=== PATIENT | female | born 1970 | race Caucasian/White ===

== ENCOUNTER → 2016-11-25 | Outpatient (CLI) | payer OTHER ==
[~2016-11-25] MED LIST: CELEXA40 MG PO; DEPAKOTE500 MG PO; DESYREL100 MG PO; MIRALAX255 GM; MORPHINE SULFA100 MG PO; NAPRELAN500 M1 PO; NASONEX17 GM; OXYCODONE HCL20 M1 PO; PRILOSEC40 MG PO; REQUIP3 MG PO; STOOL SOFTENER50 MG; SYNTHROID300 MCG PO; WELLBUTRIN 100100 M1 NG; ZOFRAN4 MG
== END ==
LOC: CAT 12:12
DX: S42.202K Unspecified fracture of upper end of left humerus, subsequent encounter for fracture with nonunion (principal); X58.XXXD Exposure to other specified factors, subsequent encounter

== ENCOUNTER 2016-12-11 05:19 | Inpatient (IN) | payer OTHER ==
[2016-12-11] VITALS (8 sets, daily range): BP systolic 85–118; BP diastolic 41–68
[~2016-12-11] VITALS: Ht 167.6 cm; Wt 70.3 kg
--- NOTE | ~2016-12-11 | O ---
[address] [address] OPERATIVE REPORT Name: MIR FERNANDES Room #: 411-P ADM IN M.R.#: [id number] Admission: 12/11/16 Attend Phys: Hernandez Godinez Discharge: Date of : 70 Report #: [id number] THIS REPORT FOR: //name// CC: Hernandez Gavin DATE OF SERVICE: 12/11/2016 PREOPERATIVE DIAGNOSIS: Left proximal humeral fracture nonunion. POSTOPERATIVE DIAGNOSIS: Left proximal humeral fracture nonunion. PROCEDURE PERFORMED: Left open reduction internal fixation of proximal humerus fracture with allograft bone grafting and biceps tenodesis. SURGEON: Hernandez Johnson M.D. OYSTER GROWER: Mary Fischer PA-C. ANESTHESIA: General with preoperative interscalene block. FLUIDS: 1000 mL. ESTIMATED BLOOD LOSS: Approximately 200 mL. IMPLANTS UTILIZED: Synthes standard proximal humeral locking plate and RTI biologics 30 mL cancellous bone graft cubes. DESCRIPTION OF PROCEDURE: After proper identification of the patient and operative site in preoperative holding area, the operative site was signed by myself. Prophylactic antibiotics given. The patient elected to proceed with an ultrasound guided interscalene block after reviewing the risks, benefits, alternatives and potential complications with anesthesia. After satisfactory block, the patient was brought back to the operative suite. After induction of satisfactory general endotracheal anesthesia, the patient was carefully positioned in the beach chair position with head of bed elevated approximately 40 degrees. Anterior deltopectoral approach was planned. Left shoulder was sterilely prepped and draped in usual manner. Final skin draping was with Ioban isolation drape. A [email or web address] limb positioning system was utilized throughout the entire procedure to aid in the patient limb positioning. Qualified phlebotomy lab assistant was utilized throughout the entire procedure to aid in patient limb positioning, visualization and retraction of the soft tissues, instrument passage closure and sling application. Anterior deltopectoral approach was planned. Skin was incised sharply. Full thickness skin flaps were developed. Cephalic vein was identified and retracted [address] [address] OPERATIVE REPORT Name: MIR FERNANDES Room #: 411-P ADM IN M.R.#: [id number] Admission: 12/11/16 Attend Phys: Hernandez Godinez Discharge: Date of : 70 Report #: [id number] laterally. Subdeltoid adhesions were carefully elevated. Fracture site was exposed. Long head of biceps tendon was interposed within the fracture site and this was tenodesed to the undersurface of pectoralis major tendon. A portion of the interposed soft tissue at the fracture site was carefully removed under direct visualization and a brown retractor was used to retract the deltoid in a blunt Hohmann. A portion of the hypertrophic nonunion was removed more laterally than medially. The intramedullary canal of the humeral shaft was recreated with a drill bit and care was taken to ensure this was going down the center of the humeral shaft. The proximal humerus had a bone cyst full of fibrous soft tissue that was carefully removed. This was curetted out. Bleeding cancellous bone surface was noted and this was packed with allograft bone graft. The fracture site edges were carefully trimmed and the fracture appeared to reduce nicely. On the radiographs, there was some irregularity along the most medial aspect of the fracture due to the retained hypertrophic nonunion portion, but the overall proximal humeral aspect and head relative to the shaft nicely reduced. Two #2 FiberWires were placed, 1 in the greater tuberosity more infraspinatus supraspinatus junction and 1 in the lesser tuberosity subscapularis junction. A plate was provisionally secured with K-wires. Images were taken and fracture and hardware deemed to be in satisfactory position. Next, the shaft portion was temporarily reduced with cortical screw and then, a total of 5 locking screws were placed into the proximal humerus. These had good purchase. Care was taken to ensure they did not penetrate the articular surface. The #2 FiberWires were then tied through the drill holes in the plate. An additional 3 locking screws were placed in the more distal portion of the shaft and plate creating a cortices of fixation. The construct moved without any gross motion, was nicely reduced. Multiple implant images were taken in the AP oblique and lateral planes and it was deemed to be in satisfactory position. The wound was thoroughly irrigated with normal saline. One gram of vancomycin powder was utilized, half of this in the deep tissues, half in the more subcutaneous tissues. #1 Vicryl, 2-0 Vicryl and a running 3-0 Monocryl were utilized for closure. This was sealed with the Dermabond. Sterile dressing was applied. She was then placed in a sling and abduction pillow. At time of dictation, she was still in the operative suite with anticipated discharge to recovery room in stable condition. <ELECTRONICALLY SIGNED> By: Hernandez Johnson MD 12/11/16 1608 [id number] 1314 Hernandez Johnson MD /nt
[~2016-12-11 05:19] MED LIST changes: +AMITIZA 24 MCG24 MC1 PO; +CALCIUM 500 +1 EAC5 PO; +CENTRUM SILVER1 EAC4 PO; +LIORESAL 10 MG10 MG PO; +MIDODRINE HCL10 MG PO; +MS CONTIN 30 MG30 M1 PO; +MS CONTIN15 MG PO; +OMEPRAZOLE40 MG PO; +STOOL SOFTENER100 M1 PO; +TRAZODONE HCL100 MG PO; +VALIUM5 MG PO; +VITAMIN B-1000 MCG/2 IM; +VITAMIN D-32000 UNIT PO; -ZOFRAN4 MG; +ZOFRAN4 MG PO; +ZOLPIDEM TARTRA10 MG PO; +[UNRECOGNIZED DRUG - REMARK] PO
[2016-12-12 03:08] VITALS: BP 97/56
[2016-12-12 06:30] LABS: HEMATOCRIT 29.5 % (37.0-47.0); HEMOGLOBIN 10.1 gm/dL (12.0-15.0)
[2016-12-12 06:56] LABS: POTASSIUM 4.7 mmol/L (3.5-5.1)
[2016-12-12 08:44] VITALS: BP 85/45
[2016-12-12 08:49] VITALS: BP 116/42
[2016-12-12 16:00] VITALS: BP 98/53
[2016-12-12 20:20] VITALS: BP 122/30
[2016-12-13] VITALS (7 sets, daily range): BP systolic 72–129; BP diastolic 38–57
[2016-12-13 04:51] LABS: HEMATOCRIT 22.1 % (37.0-47.0); MCH 32.8 pg (26.0-34.0); MCHC 34.2 g/dL (28.0-37.0); MCV 95.9 fL (80.0-100.0); PLATELET COUNT 75 thou/uL (150-400); RDW 12.9 % (10.5-14.5); WBC 5.8 thou/uL (4.0-11.0)
[2016-12-13 04:55] LABS: HEMOGLOBIN 7.6 gm/dL (12.0-15.0)
[2016-12-13 04:57] LABS: MANUAL DIFF YES
[2016-12-13 05:25] LABS: CREATININE 0.5 mg/dL (0.6-1.0); MAGNESIUM 1.6 mg/dL (1.8-2.4); POTASSIUM 3.8 mmol/L (3.5-5.1)
[2016-12-13 05:33] LABS: ABSOLUTE NEUTROPHILS 3.5 thou/uL (1.4-8.2); MYELOCYTES 1 %; PLATELET ESTIMATE DECREASED; TOTAL CELL COUNT 100
[2016-12-14 00:16] VITALS: BP 96/44
[2016-12-14 04:01] LABS: CALCIUM 8.5 mg/dL (8.5-10.1); CREATININE 0.6 mg/dL (0.6-1.0); POTASSIUM 3.5 mmol/L (3.5-5.1)
[2016-12-14 04:27] VITALS: BP 139/63
[2016-12-14 04:31] LABS: HEMATOCRIT 29.1 % (37.0-47.0); MCHC 33.7 g/dL (28.0-37.0); RBC 3.07 mil/uL (4.20-5.00); RDW 14.4 % (10.5-14.5); WBC 7.1 thou/uL (4.0-11.0)
[2016-12-14 04:39] LABS: HEMOGLOBIN 9.8 gm/dL (12.0-15.0)
[2016-12-14 08:06] VITALS: BP 131/62
[2016-12-14 12:01] VITALS: BP 131/62
[2016-12-14 13:06] VITALS: BP 131/62
[2016-12-14 14:21] VITALS: BP 131/62
== END 2016-12-14 14:30 | disposition home or self-care (01) | DRG 493 ==
LOC: OR 05:19 → TBA 05:19 → OR 12:37 → 4N 14:39
PROVIDERS: Family Medicine; Nurse Practitioner; Physician Assistant Surgical
PROC: 0PSG04Z Reposition Left Humeral Shaft with Internal Fixation Device, Open Approach (ICD-10-PCS; principal; 2016-12-11)
PROC: 0PU Upper Bones, Supplement (ICD-10-PCS; principal; 2016-12-11)
PROC: 0LS40ZZ Reposition Left Upper Arm Tendon, Open Approach (ICD-10-PCS; principal; 2016-12-11)
PROC: 30233N1 Transfusion of Nonautologous Red Blood Cells into Peripheral Vein, Percutaneous Approach (ICD-10-PCS; 2016-12-13)
DX: S42.202A Unspecified fracture of upper end of left humerus, initial encounter for closed fracture (principal); D62 Acute posthemorrhagic anemia; G89.4 Chronic pain syndrome; F32.9 Major depressive disorder, single episode, unspecified; I95.9 Hypotension, unspecified; F41.9 Anxiety disorder, unspecified; E03.9 Hypothyroidism, unspecified; M79.7 Fibromyalgia; G47.30 Sleep apnea, unspecified; M54.9 Dorsalgia, unspecified; K21.9 Gastro-esophageal reflux disease without esophagitis; M54.2 Cervicalgia; M85.622 Other cyst of bone, left upper arm; Z86.718 Personal history of other venous thrombosis and embolism; Z86.711 Personal history of pulmonary embolism; Z90.49 Acquired absence of other specified parts of digestive tract; Z90.710 Acquired absence of both cervix and uterus; Z98.84 Bariatric surgery status; Z88.0 Allergy status to penicillin; W18.39XA Other fall on same level, initial encounter; Y93.89 Activity, other specified; Y92.89 Other specified places as the place of occurrence of the external cause; Y99.8 Other external cause status
CPT/HCPCS: 10790; 50010; 50101; 50172; 50341; 50386; 50417; 50568; 50697; 50733; 50935; 51439; 54118; 56525; 56530; 56667; 62110; 62900; 65060; 70005

== ENCOUNTER 2018-02-04 05:22 | Inpatient (IN) | payer OTHER ==
[2018-01-26 12:39] LABS: HEMATOCRIT 36.6 % (37.0-47.0); HEMOGLOBIN 12.3 gm/dL (12.0-15.0); MCH 29.6 pg (26.0-34.0); MCHC 33.4 g/dL (28.0-37.0); MCV 88.4 fL (80.0-100.0); RBC 4.14 mil/uL (4.20-5.00); RDW 13.6 % (10.5-14.5); WBC 7.5 thou/uL (4.0-11.0)
[2018-01-26 12:42] LABS: URINE BILIRUBIN NEGATIVE (Negative); URINE BLOOD NEGATIVE (Negative); URINE CLARITY CLEAR; URINE COLOR YELLOW; URINE GLUCOSE-RANDOM* NEGATIVE (Negative); URINE KETONES TRACE (Negative); URINE LEUKOCYTES-REFLEX NEGATIVE (Negative); URINE NITRITE-REFLEX NEGATIVE (Negative); URINE PROTEIN (DIPSTICK) NEGATIVE (Negative); URINE UROBILINOGEN 0.2 E.U./dl (0.2-1.0)
[2018-01-26 12:48] LABS: CALCIUM 8.9 mg/dL (8.5-10.1); CREATININE 0.8 mg/dL (0.6-1.0); POTASSIUM 3.8 mmol/L (3.5-5.1)
[~2018-02-04] VITALS: Ht 165.1 cm; Wt 83.0 kg
--- NOTE | ~2018-02-04 | O ---
[facility] [place] [address] OPERATIVE REPORT Name: MIR FERNANDES Room #: 417-I ADM IN M.R.#: [id number] Admission: 02/04/18 Attend Phys: Hernandez Godinez Discharge: Date of : 70 Report #: [id number] THIS REPORT FOR: //name// CC: Hernandez Gavin DATE OF SERVICE: 02/04/2018 PREOPERATIVE DIAGNOSIS: Left proximal humeral fracture nonunion, status post open reduction and internal fixation. POSTOPERATIVE DIAGNOSIS: Left proximal humeral fracture nonunion, status post open reduction and internal fixation. PROCEDURE PERFORMED: Left reverse total shoulder arthroplasty following hardware removal with proximal humeral locking plate. SURGEON: Hernandez Johnson MD ANESTHESIA: General with preoperative ultrasound-guided interscalene block. FLUIDS: 1100 mL crystalloid. ESTIMATED BLOOD LOSS: Approximately 200 mL. IMPLANTS PLACED: Delta Xtend Global Unite revision stem size 10 with a size 1 centered epiphysis LOCO-coated, +9 polyethylene cup and a standard metaglene with 38 eccentric glenosphere. DESCRIPTION OF PROCEDURE: After proper identification of the patient and operative site in preoperative holding area, the operative site was signed by myself. Prophylactic antibiotics were given. The patient elected to receive an interscalene block after reviewing the risks, benefits, alternatives and potential complications with Anesthesia. After a satisfactory block, the patient was brought back to the operative suite after induction of satisfactory general endotracheal anesthesia. She was carefully positioned in the beach chair with head of bed elevated approximately 40 degrees. Left shoulder was sterilely prepped and draped in usual manner and placed a [employer] limb positioning system. Final skin draping was with Ioban isolation drape. Previous incision had been marked. Anterior deltopectoral approach was planned. The skin was incised sharply. Deltopectoral interval was identified. This area was opened. The subdeltoid space demonstrated some thickening and scar tissue consistent with her prior injury and surgery. This was carefully released to allow for exposure about the proximal humerus. Plate was identified and removed in its entirety with all the screws. Screw holes were gently curetted. There was a nonunion at the fracture site and fibrous tissue was [address] [address] OPERATIVE REPORT Name: MIR FERNANDES Room #: 417-I ADM IN M.R.#: [id number] Admission: 02/04/18 Attend Phys: Hernandez Godinez Discharge: Date of : 70 Report #: [id number] carefully removed. Examination of the more proximal aspect of the humerus revealed that the cuff integrity and tissue quality was poor. An attempt was made to preserve the cuff attachments on the lesser and greater tuberosities for a possible reconstruction in more of a 4-part type fracture pattern with hemiarthroplasty and there just was not sufficient tissue quality to accommodate this. At this point, the proximal humerus fracture fragment had undergone some avascular necrosis and this was removed in its entirety. The glenoid surface was still fairly well preserved, but with the absent bone quality and tissue loss, I did not feel that hemiarthroplasty would be a viable option for her cuff integrity to maintain stability and so as discussed preoperatively, reverse total shoulder ensued. Capsule and labrum was carefully excised. Axillary nerve was identified and protected throughout the entire procedure. At this point, a guide pin was placed within the glenoid. Preoperative templating and [employer] software was used for prosthetic planning. Guidepin was inserted. Glenoid face was reamed. Stone reamer was utilized. Any peripheral soft tissue was carefully removed. Overall, bone quality was just fair to poor when the central peg was drilled. Standard metaglene was inserted and superior and inferior locking screws were placed as well as the anterior and posterior nonlocking screws. Inferior 3 screws had the best purchase out of them and the metaglene portion was stable. A 38 eccentric glenosphere was chosen just due to her shoulder and glenoid size. At this point, the humerus was then prepared. The canal entrance was carefully identified. This was enlarged with a curette and small rongeur and then hand reaming through the area of the prior screw and plate fixation into the canal was performed up to a size 10 stem, which matched the preoperative templating. The remaining proximal humeral portion was cut. There was an area of avascular necrosis within the head and stem and this was reamed out. This was provisionally fashioned to go around the metaphyseal portion of the stem hoping to aid in repair of a portion of the subscapularis and felt some tissue void. Next, a size 10 stem with a size 1 epiphysis was assembled on the back table, positioned and best fit in approximately 20 degrees of retroversion. This was reduced with various trial humeral cups and the +9 cup provided the best overall stability. Intraoperative radiographs in more of an internal and externally rotated position were performed and this appeared to be satisfactorily placed with this long stem revision-type stem. Trial implants were removed. The joint was again thoroughly irrigated with antibiotic irrigant and was done so multiple times throughout the procedure. The previously mentioned LOCO-coated press-fit long stem Delta Xtend [employer] Unite stem was assembled and carefully impacted into position. It had good rotational stability. The elbow was supported during this insertion. It was placed in approximately 20 degrees of retroversion. A +9 polyethylene liner provided the best overall fit and this was impacted into position for final implantation. There is a portion of the subscapularis that was able to be repaired to the bone grafted piece of the metaphysis that had been placed around the stem and secured with a #5 FiberWire and #2 FiberWire was used to repair the subscapularis with more inferior part to this. Shoulder was stable throughout range of motion, demonstrated no propensity for dislocation with attempted maneuvers and this was [facility] [address] [place] [address] OPERATIVE REPORT Name: DENAMIR Luis Manuel Room #: 417-I ADM IN M.R.#: [id number] Admission: 02/04/18 Attend Phys: Hernandez Godinez Discharge: Date of : 70 Report #: [id number] thoroughly irrigated with antibiotic irrigant. One gram of vancomycin powder was utilized, half of it deep, half of it more superficial with closure, #1 Vicryl, 2-0 Vicryl and final skin closure was with Monocryl in a running subcuticular manner. Dermabond was applied. Sterile dressing and sling will be utilized for approximately 4 weeks postoperatively. The patient awakened and transferred to the recovery room in stable condition. <ELECTRONICALLY SIGNED> By: Hernandez Johnson MD 02/05/18 1550 [id number] 1739 Hernandez Johnson MD /nt
[~2018-02-04 05:22] MED LIST changes: +B12INJ IM; +CELEXA 10 MG TA10 M1 PO; +DEPAKOTE 250MG250 MG PO; +DICLOFENAC SODI75 MG PO; +NEURONTIN600 MG PO; +REQUIP0.5 MG PO; +WELLBUTRIN XL150 MG PO
[2018-02-04 10:10] VITALS: BP 106/72
[2018-02-04 17:43] VITALS: BP 97/59
[2018-02-04 19:22] VITALS: BP 114/60
[2018-02-04 20:23] VITALS: BP 116/66
[2018-02-04 21:23] VITALS: BP 118/62
[2018-02-04 22:23] VITALS: BP 110/60
[2018-02-05 03:48] LABS: POTASSIUM 4.9 mmol/L (3.5-5.1)
[2018-02-05 04:00] LABS: HEMATOCRIT 29.6 % (37.0-47.0); HEMOGLOBIN 9.7 gm/dL (12.0-15.0)
[2018-02-05 05:27] VITALS: BP 128/55
[2018-02-05 08:45] LABS: CREATININE 0.9 mg/dL (0.6-1.0)
[2018-02-05] MEDS ORDERED: SYNTHROID50 MCG PO (08:56)
[2018-02-05 09:32] VITALS: BP 116/44
[2018-02-05 16:33] VITALS: BP 111/56
[2018-02-05 20:40] VITALS: BP 104/50
[2018-02-06 03:40] VITALS: BP 91/46
[2018-02-06 07:14] VITALS: BP 111/56
[2018-02-06 07:52] VITALS: BP 122/76
[2018-02-06] MEDS ORDERED: BANOPHEN25 M1 PO (09:31)
[2018-02-06] MEDS ORDERED: AMBIEN 5 MG TABL5 M1 PO (12:52)
[2018-02-06 15:45] VITALS: BP 122/76
== END 2018-02-06 18:05 | disposition home or self-care (01) | DRG 483 ==
LOC: 4E 05:22 → TBA 05:22 → PRE 05:51 → 4E 17:40 → PRE 04-06 12:51
PROVIDERS: Orthopaedic Surgery Sports Medicine
PROC: 0RRK00Z Replacement of Left Shoulder Joint with Reverse Ball and Socket Synthetic Substitute, Open Approach (ICD-10-PCS; principal; 2018-02-04)
PROC: 0PPD04Z Removal of Internal Fixation Device from Left Humeral Head, Open Approach (ICD-10-PCS; principal; 2018-02-04)
DX: S42.202K Unspecified fracture of upper end of left humerus, subsequent encounter for fracture with nonunion (principal); M96.0 Pseudarthrosis after fusion or arthrodesis; G25.81 Restless legs syndrome; F32.9 Major depressive disorder, single episode, unspecified; G47.00 Insomnia, unspecified; G89.29 Other chronic pain; M54.9 Dorsalgia, unspecified; G47.33 Obstructive sleep apnea (adult) (pediatric); Z86.718 Personal history of other venous thrombosis and embolism; Z86.711 Personal history of pulmonary embolism; Z90.49 Acquired absence of other specified parts of digestive tract; Z90.710 Acquired absence of both cervix and uterus; Z88.0 Allergy status to penicillin; Z90.3 Acquired absence of stomach [part of]; Y83.8 Other surgical procedures as the cause of abnormal reaction of the patient, or of later complication, without mention of misadventure at the time of the procedure; Z83.3 Family history of diabetes mellitus; Z23 Encounter for immunization
CPT/HCPCS: 10783; 50010; 50101; 50172; 50386; 50417; 50697; 50733; 50935; 51771; 52138; 53000; 53078; 54118; 55430; 56524; 56525; 56526; 56530; 56531; 57095; 57103; 62110; 62900; 70005